=== PATIENT | female | born 1970 | race Caucasian/White ===

== ENCOUNTER 2017-11-24 18:21 | Emergency (ER) | payer OTHER ==
[~2017-11-24] VITALS: Ht 152.4 cm; Wt 65.8 kg
[~2017-11-24 18:21] MED LIST: BENZTROPINE MESY2 MG PO; DEPAKOTE ER500 MG; FLUPHENAZINE HC10 MG PO; NOHOMEMEDICATIONS; VISTARIL 25 MG25 M1 PO; ZOLOFT100 MG PO
[2017-11-24 18:50] LABS: ABSOLUTE LYMPHOCYTES 2.4 thou/uL (0.8-5.3); ABSOLUTE MONOCYTES 0.4 thou/uL (0.0-1.2); ABSOLUTE NEUTROPHILS 6.6 thou/uL (1.6-8.1); BASOPHILS 0.4 %; EOSINOPHILS 0.3 %; HEMATOCRIT 38.7 % (37.0-47.0); LYMPHOCYTES 25.8 %; MCH 30.4 pg (26.0-34.0); MCHC 33.6 g/dL (28.0-37.0); MCV 90.5 fL (80.0-100.0); MPV 7.4 fl. (7.2-11.1); NUCLEATED RBCS 0 /100WBC; PLATELET COUNT* 279 thou/uL (150-400); POLYS 69.5 %; RBC 4.27 mil/uL (4.20-5.00); RDW-CV 13.4 % (10.5-14.5); WBC 9.4 thou/uL (4.0-11.0)
[2017-11-24 18:57] LABS: URINE BILIRUBIN NEGATIVE (Negative); URINE BLOOD NEGATIVE (Negative); URINE CLARITY CLEAR; URINE COLOR YELLOW; URINE GLUCOSE-RANDOM NEGATIVE (Negative); URINE KETONES NEGATIVE (Negative); URINE LEUKOCYTES-REFLEX NEGATIVE (Negative); URINE NITRITE-REFLEX NEGATIVE (Negative); URINE PROTEIN NEGATIVE (Negative); URINE SPECIFIC GRAVITY <= 1.005 (1.005-1.030); URINE UROBILINOGEN 0.2 E.U./dl (0.2-1.0)
[2017-11-24 18:57] LABS: CALCIUM 8.5 mg/dL (8.5-10.1); CREATININE 0.8 mg/dL (0.6-1.3); POTASSIUM 3.7 mmol/L (3.5-5.1)
[2017-11-24 19:10] LABS: ALBUMIN 3.7 g/dL (3.4-5.0); TOTAL BILIRUBIN 0.4 mg/dL (<0.1-1.0); TOTAL PROTEIN 6.7 g/dL (6.4-8.2)
[2017-11-24 19:13] LABS: ALCOHOL < 10 mg/dL (<10); AMP/METHAMP Negative (Negative); BARBITURATES Negative (Negative); BENZODIAZEPINES Negative (Negative); COCAINE Negative (Negative); METHADONE Negative (Negative); OPIATES Negative (Negative); PCP Negative (Negative); SALICYLATE < 2.8 mg/dL (2.8-20.0); THC Negative (Negative)
[2017-11-24 19:14] LABS: ACETAMINOPHEN < 2 ug/mL (10-30)
[2017-11-25 05:10] VITALS: BP 116/72
== END 2017-11-25 05:10 ==
LOC: M.ERS 18:21
PROVIDERS: Emergency Medicine Emergency Medical Services
DX: R45.851 Suicidal ideations (principal); E87.1 Hypo-osmolality and hyponatremia; F20.9 Schizophrenia, unspecified; Z88.0 Allergy status to penicillin

== ENCOUNTER 2021-03-11 14:44 | Observation (INO) | payer MEDICAID ==
[~2021-03-11] VITALS: Ht 149.9 cm; Wt 72.6 kg
[2021-03-11 14:49] VITALS: BP 137/94
[2021-03-11] MEDS ORDERED: LITHIUM CARBON150 MG (14:51)
[2021-03-11] MEDS ORDERED: SERTRALINE HCL100 MG PO (14:52)
[2021-03-11 15:24] LABS: URINE BILIRUBIN NEGATIVE (Negative); URINE BLOOD NEGATIVE (Negative); URINE CLARITY CLEAR; URINE COLOR YELLOW; URINE GLUCOSE-RANDOM NEGATIVE (Negative); URINE KETONES NEGATIVE (Negative); URINE LEUKOCYTES-REFLEX NEGATIVE (Negative); URINE NITRITE-REFLEX NEGATIVE (Negative); URINE PROTEIN NEGATIVE (Negative); URINE SPECIFIC GRAVITY <= 1.005 (1.005-1.030); URINE UROBILINOGEN 0.2 E.U./dl (0.2-1.0)
[2021-03-11 15:32] LABS: AMP/METHAMP Negative (Negative); BARBITURATES Negative (Negative); BENZODIAZEPINES Negative (Negative); COCAINE Negative (Negative); METHADONE Negative (Negative); OPIATES Negative (Negative); PCP Negative (Negative); THC Negative (Negative)
[2021-03-11 15:40] LABS: ABSOLUTE EOSINOPHILS 0.1 thou/uL (0.0-0.7); ABSOLUTE LYMPHOCYTES 2.7 thou/uL (0.8-5.3); ABSOLUTE MONOCYTES 0.4 thou/uL (0.0-1.2); ABSOLUTE NEUTROPHILS 3.8 thou/uL (1.6-8.1); BASOPHILS 0.5 %; EOSINOPHILS 1.6 %; HEMATOCRIT 38.5 % (37.0-47.0); HEMOGLOBIN 12.8 gm/dL (12.0-15.0); LYMPHOCYTES 38.5 %; MCH 29.3 pg (26.0-34.0); MCHC 33.2 g/dL (28.0-37.0); MCV 88.2 fL (80.0-100.0); MONOCYTES 5.4 %; MPV 7.5 fl. (7.2-11.1); NUCLEATED RBCS 0 /100WBC; PLATELET COUNT* 228 thou/uL (150-400); RBC 4.36 mil/uL (4.20-5.00); RDW-CV 13.1 % (10.5-14.5); WBC 7.1 thou/uL (4.0-11.0)
[2021-03-11 15:45] LABS: CALCIUM 9.4 mg/dL (8.5-10.1); CREATININE 1.2 mg/dL (0.6-1.3); POTASSIUM 4.2 mmol/L (3.5-5.1)
[2021-03-11 15:51] LABS: ALBUMIN 3.9 g/dL (3.4-5.0); TOTAL BILIRUBIN 0.3 mg/dL (<0.1-1.0); TOTAL PROTEIN 6.7 g/dL (6.4-8.2)
--- NOTE | 2021-03-11 16:02 | EKG ---
[place] [address] ELECTROCARDIOGRAM REPORT Name: RODOPERLA Nieves Room: [facility]#: [id number] Admission: 03/11/21 Attend Phys: Discharge: Date of : 70 Date of Service: 03/11/21 1529 Report #: [id number] THIS REPORT FOR: //name// [facility] ED Test Date: 2021-03-11 Test Time: 15:29:18 Pat Name: PERLA KOEHLER Department: Room: Gender: Se[employer] Engraver: : 1970 Requested By: Roland Jay Order Number: [id number] MD: Wesly Malin Measurements Intervals [place] Rate: 99 P: 42 CT: 153 QRS: 86 QRSD: 87 T: 59 QT: 364 QTc: 468 Interpretive Statements Sinus tachycardia Multiform ventricular premature complexes Low voltage, extremity and precordial leads No previous ECG available for comparison Electronically Signed On 03-11-2021 16:02:05 CDT by Wesly Malin [email or web address] <ELECTRONICALLY SIGNED> By: Wesly Malin MD, [facility] 03/11/21 1602 1529 1529 Wesly Malin MD, FAC /EPI
[2021-03-11 20:20] VITALS: BP 123/66
--- NOTE | 2021-03-11 20:43 | NUR ---
PT ARRIVED 2014, UNSTEADY TRANSFERRING TO BED, FALL PRECAUTIONS IN PLACE. SHE COULD NOT REALLY ANSWER MEDICAL HISTORY QUESTIONS, I DID AN ASSESSMENT ON PHYSICAL APPEARANCE AND SHE DID NOT REPORT ANY DISCOMFORT/PAIN. SHE UNDERSTOOD THAT SHE IS HERE FOR OBSERVATION TONIGHT. SHE IS SINUS RHYTHM ON THE MONITOR. ALERT AND ORIENTED BUT WITH SLIGHT CONFUSION/FORGETFULNESS, FLAT AFFECT/ SHE IS RESTING COMFORTABLY IN ROOM. FLUIDS STARTED. WILL CONTINUE TO MONITOR.
[2021-03-12] VITALS: BP 113/76
[2021-03-12 04:12] VITALS: BP 107/60
[2021-03-12 07:24] VITALS: BP 108/70
--- NOTE | 2021-03-12 07:39 | NUR ---
ASSUMED CARE OF PT THIS AM AROUND 0715- ANGLE FURNACEMAN IN PLACE ORDERED, TRACING SR- UPON ASSESSMENT PT NOTED TO MARLEE RESTINGH IN BED- PT A&O X4 WITH NOTED SLOW RESPONSES- CONT OF B/B- SBA WITH TRANSFERS FOR SAFETY- VSS, O2 SAT 99% ON RA- LCTA, RESP EVEN AND UN-LABORED- ABD SOFT/OBESE/NON-TENDER, BS X4 QUADS- LAST BM REPORTED 03/11/21- IV NOTED TO RIGHT AC INTACT, IVF INFUSSING PRESCRIBED- TRACE EDEMA NOTED TO BLE- PT DENIES ANY C/O PAIN- CALL LIGHT AND PERSONAL BELONGINGS WITH IN REACH- HOURLY ROUNDS IN PLACE R/T SAFETY/NEEDS- ALL NEEDS MET AT THIS TIME
--- NOTE | 2021-03-12 09:36 | NUR ---
CM ASSESSMENT: PT A&O, INDEPENDENT WITH ADL'S, ACTIVE AND DRIVES. PT RESIDES AT HOME ALONE. PT USES 0 DME. PT HAS 0 HX OF HH OR SNF. CM WILL REMAIN AVAILABLE TO ASSIST AND FOLLOW NEEDED.
[2021-03-12 14:16] VITALS: BP 108/70
== END 2021-03-12 15:40 | disposition home or self-care (01) ==
LOC: M.ERS 14:44 → M.TBA-ER 16:47 → M.2W 16:47
PROVIDERS: Emergency Medicine; ADMIT Internal Medicine; ATTEND Internal Medicine
DX: R41.82 Altered mental status, unspecified (principal); Z20.822 Contact with and (suspected) exposure to COVID-19; F20.9 Schizophrenia, unspecified; R45.851 Suicidal ideations; Z79.899 Other long term (current) drug therapy; Z91.51 Personal history of suicidal behavior